=== PATIENT | male | born 1995 | race African-American/Black ===

== ENCOUNTER 2020-12-12 18:16 | Emergency (ER) | payer BC, SELFPAY ==
--- NOTE | ~2020-12-12 | XR_ITS ---
EXAMINATION: XR finger 3rd RT min 2V EXAM DATE: 12/12/2020 18:44 INDICATION: Caught On Stair Rail 12/12/20. DIP Pain/Swelling. TECHNIQUE: Right 3rd finger frontal, lateral and oblique projections obtained and reviewed. There is no prior study for comparison. FINDINGS: There are no acute right 3rd finger fractures or dislocations identified. There is no subc utaneous gas. The soft tissue is unremarkable. There are no radiopaque foreign bodies. IMPRESSION: No acute osseous findings. Reviewed, dictated and finalized at location A. IMPRESSION: No acute osseous findings.
[2020-12-12 18:26] VITALS: BP 138/68; PULSE 95; RESP 20; TEMP 36.9; O2SAT 98
--- NOTE | 2020-12-12 19:12 | ED.UPPEXIN ---
HPI - Extremity Injury (Upper) General Chief Complaint: Extremity Injury, Upper Stated Complaint: Right finger pain Time Seen by Provider: 12/12/20 19:00 Source: patient and RN notes reviewed Mode of arrival: ambulatory Limitations: no limitations History of Present Illness HPI narrative: Patient presents today with an injury to his right third finger. He was at work when he got it stuck between a vacuum hose and a railing around 1300. Denies numbness or tingling in the finger. Currently rates her pain 6/10 and applied some ice for 15 minutes after the injury without relief. MD complaint: injury to: right and finger Related Data Home Medications Medication Instructions Recorded Confirmed No Home Medications 12/12/20 12/12/20 Allergies Allergy/AdvReac Type Severity Reaction Status Date / Time codeine Allergy Mild Unknown Verified 12/12/20 18:52 Penicillins Allergy Unknown Other Verified 12/12/20 18:52 Review of Systems Review of Systems: CONSTITUTIONAL: Denies body aches, fever, chills, or sweats. EYES: Denies visual changes, redness, or discharge. ENT: Denies rhinorrhea, congestion, sore throat, or otalgia. CARDIOVASCULAR: Denies chest pain, palpitations, or edema. RESPIRATORY: Denies cough or dyspnea. GASTROINTESTINAL: Denies abdominal pain, nausea, vomiting, or diarrhea. GENITOURINARY: Denies dysuria or hematuria. SKIN: Denies rash, itching, or wounds. MUSCULOSKELETAL: Denies back pain, or myalgia.+ Right finger injury NEUROLOGIC: Denies headache, numbness, tingling, or weakness. PSYCH: Denies depression or anxiety. PMFSH Comments At time of signature, I have reviewed and agree with nursing past medical, surgical, social and family history unless otherwise noted. Please see nursing chart for further information. There is no relevant family history pertinent to the presenting complaint Exam Narrative: GENERAL: Well-appearing, well-nourished, and in no acute distress. HEAD: Normocephalic, atraumatic. EYES: EOMI. No redness or drainage. Conjunctivae normal. ENT: Mucous membranes pink and moist. NECK: Normal AROM. CHEST: No respiratory distress. EXTREMITIES: Right third finger: Tenderness to the middle phalanx and distal phalanx with scant edema. No ecchymosis. Distal sensation intact. Capillary refill normal. Decreased range of motion due to pain. SKIN: Warm, dry, no rash. Capillary refill normal. Normal skin turgor. NEURO: No focal deficits. Alert and oriented x3. Gait steady. PSYCH: Normal affect. No signs of depression or anxiety. Course Vital Signs Vital signs: Vital Signs Temperature 98.5 F 12/12/20 18:26 Pulse Rate 95 12/12/20 18:26 Respiratory Rate 20 12/12/20 18:26 Blood Pressure 138/68 12/12/20 18:26 Pulse Oximetry 98 12/12/20 18:26 Temperature 97.9 F 12/12/20 18:52 Pulse Rate 105 H 12/12/20 18:52 Respiratory Rate 14 12/12/20 18:52 Blood Pressure 143/93 H 12/12/20 18:52 Pulse Oximetry 100 12/12/20 18:52 Reviewed. Pt has been instructed to follow up with his PCP regarding his elevated blood pressure today. MDM - Extremity Injury (Upper) Differential Diagnosis Differential diagnosis: Likely finger sprain, dislocation of finger and other (Finger contusion, fracture) Imaging Data Radiologist's impression: ITS Impressions Finger X-Ray 12/12/20 18:45 IMPRESSION: No acute osseous findings. Critical Care Time Critical Care Time Critical Care Time: No Discharge Plan Discharge Clinical Impression: Contusion of finger Qualifiers: Encounter type: initial encounter Finger: middle finger Damage to nail status: without damage Laterality: right Qualified Code(s): S60.031A - Contusion of right middle finger without damage to nail, initial encounter Patient Disposition: Home, Self-Care Condition: Stable Instructions: Contusion in Adults (ED) Additional Instructions: Your x-ray is negative for fracture today. Fantasma Griffiths
== END 2020-12-12 19:20 | disposition home or self-care (01) ==
PROVIDERS: Emergency Provider Nurse Practitioner
DX: S60.031A Contusion of right middle finger without damage to nail, initial encounter (principal); X58.XXXA Exposure to other specified factors, initial encounter; Y99.0 Civilian activity done for income or pay
CPT/HCPCS: 73140; 99213; G0463